=== PATIENT | male | born 1995 | race Caucasian/White ===

== ENCOUNTER 2017-01-26 20:33 | Emergency (ER) | payer OTHER ==
[2017-01-26 20:39] VITALS: TEMP 98.6; O2SAT 96
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
[2017-01-26 22:28] VITALS: BP 114/72; PULSE 82; RESP 16
== END 2017-01-26 22:27 | disposition home or self-care (01) ==
DX: S63.91XA Sprain of unspecified part of right wrist and hand, initial encounter (principal); V18.9XXA Unspecified pedal cyclist injured in noncollision transport accident in traffic accident, initial encounter
CPT/HCPCS: L3908